=== PATIENT | male | born 1955 | race Caucasian/White ===

== ENCOUNTER 2023-04-21 11:34 | Emergency (ER) | payer BC, MEDICAID ==
[~2023-04-21] VITALS: Ht 177.8 cm; Wt 90.7 kg
[2023-04-21 11:35] VITALS: BP_SYST 156; PULSE 95; RESP 18; TEMP 98.8; O2SAT 94
[2023-04-21 12:39] LABS: COVID19 ANTIGEN SOFIA FIA NEGATIVE (NEGATIVE); INFLUENZA TYPE A Negative (NEGATIVE); INFLUENZA TYPE B NEGATIVE (NEGATIVE)
[2023-04-21] MEDS ORDERED: PRED20TA PO (13:26)
[2023-04-21] MEDS ORDERED: AZIT-93 PO (13:26)
[2023-04-21] MEDS ORDERED: ALBMDI INH (13:26)
[2023-04-21] MEDS: ALBUTEROL SULFATE 0.083% 2.5 MG/3 ML VIAL.NEB INH ONE (13:28)
[2023-04-21 13:43] VITALS: BP_SYST 142; PULSE 89; RESP 17; TEMP 98.8; O2SAT 98
== END 2023-04-21 13:43 | disposition home or self-care (01) ==
LOC: SED 11:34
DX: R05.9 Cough, unspecified (principal); R09.89 Other specified symptoms and signs involving the circulatory and respiratory systems; Z79.899 Other long term (current) drug therapy; Z20.822 Contact with and (suspected) exposure to COVID-19
CPT/HCPCS: 36415; 71045; 94640; 99284